=== PATIENT | female | born 1995 | race African-American/Black ===

== ENCOUNTER 2021-04-24 20:51 | Emergency (ER) | payer OTHER ==
[~2021-04-24] VITALS: Ht 162.6 cm; Wt 104.3 kg
[2021-04-24 20:55] VITALS: BP 121/76
[2021-04-24] MEDS ORDERED: CYCL5TAB PO (21:29)
[2021-04-24] MEDS ORDERED: KETOROLAC TROMETHAMINE INJ 30 MG/ML VIAL IM ONE (21:30)
[2021-04-24] MEDS ORDERED: CYCLOBENZAPRINE 10 MG TABLET PO ONE (21:30)
[2021-04-24] MEDS ORDERED: CYCLOBENZAPRINE 10 MG TABLET ONE (21:35)
[2021-04-24] MEDS ORDERED: KETOROLAC TROMETHAMINE INJ 30 MG/ML VIAL ONE (21:35)
--- NOTE | 2021-04-24 22:05 | NUR ---
Patient discharged to home in stable condition. Written and verbal after care instructions given. Patient verbalizes understanding of instruction. Pt ambulatory with a steady gait
== END 2021-04-24 22:07 | disposition home or self-care (01) ==
LOC: ER 20:54
DX: S13.4XXA Sprain of ligaments of cervical spine, initial encounter (principal); V49.59XA Passenger injured in collision with other motor vehicles in traffic accident, initial encounter; Y93.89 Activity, other specified; Y92.413 State road as the place of occurrence of the external cause; Y99.8 Other external cause status
CPT/HCPCS: 96372; 99283; J1885